=== PATIENT | female | born 1980 | race Caucasian/White ===

== ENCOUNTER 2021-07-13 16:40 | Outpatient (CLI) | payer OTHER, SELFPAY ==
--- NOTE | ~2021-07-13 | MM_ITS ---
EXAMINATION: MM screening letitia BI w joel HISTORY: Screening mammogram TECHNIQUE: Craniocaudal and mediolateral oblique 3-D tomosynthesis images were obtained and synthetic 2-D images were generated. CAD analysis was submitted and interpreted. COMPARISON: No prior mammogram is available for comparison at this institution. BREAST PARENCHYMAL COMPOSITION: There are scattered areas of fibroglandular density. FINDINGS: There is no evidence of suspicious mass, calcification, or architectural distortion to sugg est malignancy in either breast. There has been no suspicious interval change. IMPRESSION: 1. No mammographic evidence of malignancy. 2. Recommend routine screening mammography in one year. BI-RADS Category 1: Negative Reviewed, dictated and finalized at location A. PMENT PROCESSOR
== END 2021-07-13 16:41 | disposition home or self-care (01) ==
PROVIDERS: PCP Family Medicine Adolescent Medicine; Visit Provider Obstetrics & Gynecology
DX: Z12.31 Encounter for screening mammogram for malignant neoplasm of breast (principal)
CPT/HCPCS: 77063; 77067

== ENCOUNTER 2023-04-21 10:04 | Emergency (ER) | payer OTHER, SELFPAY ==
[2023-04-21 10:16] VITALS: BP 133/84; PULSE 87; RESP 16; TEMP 37; O2SAT 98
--- NOTE | 2023-04-21 10:46 | ED.URI ---
HPI - URI/Sore Throat General Chief Complaint: Upper Respiratory Infection Stated Complaint: Cough Time Seen by Provider: 04/21/23 10:36 Source: patient and RN notes reviewed Mode of arrival: ambulatory Limitations: no limitations History of Present Illness HPI Narrative: Patient presents today complaining of a 10 day history of sinus pressure, sneezing, cough, postnasal drip that has worsened over the past 3-4 days. She has tried DayQuil, NyQuil, Mucinex, ibuprofen with mild relief. No history of asthma or COPD. She is a nonsmoker. Related Data Allergies Allergy/AdvReac Type Severity Reaction Status Date / Time morphine Allergy Unknown Unknown Verified 04/21/23 10:33 Review of Systems Review of Systems: CONSTITUTIONAL: Denies body aches, fever, chills, or sweats. EYES: Denies visual changes, redness, or discharge. ENT: Denies rhinorrhea, sore throat, or otalgia.+ congestion, sinus pressure, postnasal drip, sneezing CARDIOVASCULAR: Denies chest pain, palpitations, or edema. RESPIRATORY: Denies dyspnea.+cough GASTROINTESTINAL: Denies abdominal pain, nausea, vomiting, or diarrhea. GENITOURINARY: Denies dysuria or hematuria. SKIN: Denies rash, itching, or wounds. MUSCULOSKELETAL: Denies back pain, joint pain, or myalgia. NEUROLOGIC: Denies headache, numbness, tingling, or weakness. PSYCH: Denies depression or anxiety. PMFSH Comments At time of signature, I have reviewed and agree with nursing past medical, surgical, social and family history unless otherwise noted. Please see nursing chart for further information. There is no relevant family history pertinent to the presenting complaint Exam Narrative: GENERAL: Well-appearing, well-nourished, and in no acute distress. HEAD: Normocephalic, atraumatic. EYES: EOMI. No redness or drainage. Conjunctivae normal. ENT: Mucous membranes pink and moist. Nares congested. No rhinorrhea. TMs normal bilaterally. Throat normal. Uvula midline. NECK: Normal AROM. Supple. No lymphadenopathy. CHEST: No respiratory distress. Clear to auscultation. Harsh tight cough. HEART: Regular rate and rhythm. No murmur appreciated. Normal peripheral pulses. EXTREMITIES: Normal range of motion. No edema. SKIN: Warm, dry, no rash. Capillary refill normal. Normal skin turgor. NEURO: No focal deficits. Alert and oriented x3. Gait steady. PSYCH: Normal affect. No signs of depression or anxiety. Course Course Level of Care: Express Care Visit Vital Signs Vital signs: Vital Signs Temperature 98.6 F 04/21/23 10:16 Pulse Rate 87 04/21/23 10:16 Respiratory Rate 16 04/21/23 10:16 Blood Pressure 133/84 04/21/23 10:16 Pulse Oximetry 98 04/21/23 10:16 Oxygen Delivery Room Air 04/21/23 10:16 Temperature 98.6 F 04/21/23 10:16 Pulse Rate 87 04/21/23 10:16 Respiratory Rate 16 04/21/23 10:16 Blood Pressure 133/84 04/21/23 10:16 Pulse Oximetry 98 04/21/23 10:16 Oxygen Delivery Room Air 04/21/23 10:16 Reviewed. Pt has been instructed to follow up with her PCP regarding her elevated blood pressure today. MDM - URI/Sore Throat MDM Narrative Medical decision making narrative: Patient's exam and symptoms consistent with sinusitis and bronchitis. Will treat with Augmentin and prednisone. Patient would also like a prescription for Tessalon Perles. Anticipatory guidance given. Differential Diagnosis Differential diagnosis: Likely upper respiratory infection, sinusitis, viral infection, bronchitis and other (Pneumonia) Critical Care Time Critical Care Time Critical Care Time: No Discharge Plan Discharge Clinical Impression: Bronchitis Sinusitis Qualifiers: Sinusitis location: frontal Chronicity: acute Recurrence: non-recurrent Qualified Code(s): J01.10 - Acute frontal sinusitis, unspecified Patient Disposition: Home, Self-Care Condition: Stable Instructions: Antibiotic Form, Sinusitis (ED), Acute Bronchitis (ED) Additional Ins
== END 2023-04-21 10:54 | disposition home or self-care (01) ==
PROVIDERS: Emergency Provider Nurse Practitioner; PCP Family Medicine Adolescent Medicine
DX: J40 Bronchitis, not specified as acute or chronic (principal); J01.10 Acute frontal sinusitis, unspecified
CPT/HCPCS: 99213; G0463

== ENCOUNTER → 2023-08-27 16:00 | Outpatient (CLI) | payer OTHER, SELFPAY ==
--- NOTE | ~2023-08-27 | US_ITS ---
EXAMINATION: US pelvic complete w TV DATE: 08/27/2023 16:52 INDICATION: Hypertrophy of uterus. TECHNIQUE: Multiple transabdominal and transvaginal sonographic images of the pelvis were obtained. COMPARISON: Ultrasound 11/22/2015 FINDINGS: TRANSABDOMINAL ULTRASOUND: The uterus measures 7.8 x 4.8 x 3.5 cm. There is no free fluid in the pelvis. TRANSVAGINAL ULTRASOUND: The endometrial complex measures 12 mm in thickness. There is a 1.4 cm intramural fibroid. The right ovary measures 2.1 x 1.9 x 2.1 cm. The left ovary is not visualized. IMPRESSION: 1. 1.4 cm intramural fibroid. Reviewed, dictated and finalized at location E. ING MACHINE OPERATOR [employer]
== END ==
PROVIDERS: PCP Obstetrics & Gynecology; Visit Provider Obstetrics & Gynecology
DX: D25.1 Intramural leiomyoma of uterus (principal); N85.2 Hypertrophy of uterus
CPT/HCPCS: 76830; 76856

== ENCOUNTER 2023-09-10 14:54 | Outpatient (CLI) | payer OTHER, SELFPAY ==
[2023-09-10 15:30] LABS: Basophils Absolute Auto 0.1 K/mm3 (0.0-0.1); Basophils Percent Auto 0.6 % (0.2-1.2); Eosinophils Absolute Auto 0.3 K/mm3 (0-0.3); Eosinophils Percent Auto 3.5 % (0-4.4); Hematocrit 40.5 % (37.0-47.0); Hemoglobin 12.9 g/dL (12.0-15.0); Immature Granulocyte Absolute 0.02 K/mm3 (0.00-0.031); Immature Granulocyte Percent A 0.2 % (0-0.5); Lymphocytes Absolute Auto 2.17 K/mm3 (0.9-3.2); Lymphocytes Percent Auto 25.2 % (18.3-44.2); Mean Corpuscular HGB Conc 31.9 g/dl (32-36); Mean Corpuscular Hemoglobin 25.3 pg (26-34); Mean Corpuscular Volume 79.6 fl (80-100); Mean Platelet Volume 9.7 fl (7.4-10.4); Monocytes Absolute Auto 0.6 K/mm3 (0.1-0.6); Monocytes Percent Auto 7.4 % (2.6-8.5); Neutrophils Absolute Auto 5.4 K/mm3 (1.3-6.7); Neutrophils Percent Auto 63.1 % (45.5-73.1); Platelet Count Result 253 k/mm3 (150-375); Red Blood Count 5.09 M/mm3 (4.2-5.4); Red Cell Distribution Width 13.7 % (11.5-14.5); White Blood Count 8.6 K/mm3 (4.5-10.0)
== END 2023-09-10 14:55 | disposition home or self-care (01) ==
LOC: ANHSURGERY 14:57
PROVIDERS: PCP Family Medicine Adolescent Medicine; Visit Provider Obstetrics & Gynecology
DX: Z01.818 Encounter for other preprocedural examination (principal); N92.0 Excessive and frequent menstruation with regular cycle
CPT/HCPCS: 36415; 85025; 86850; 86900; 86901

== ENCOUNTER 2023-09-13 01:18 | Day surgery (SDC) | payer OTHER, SELFPAY ==
[2023-09-05 11:23] VITALS: BMI 43.9
--- NOTE | 2023-09-05 11:28 | PC.NURSE ---
Report to the Outpatient Waiting Room, entrance under the green pavilion located off [facility], at time 11:30 on date 09/13/23. Planned Procedure Time: 1:30. Time changes happen often and if your time is changed the preop area will call you the afternoon before. - You and your visitor will be asked to self-screen and do not enter if you have any COVID symptoms. - A mask is optional within the hospital at this time. Patients may have clear liquids (water, carbonated beverages, clear teas, apple juice) until 3 hours prior to surgery with a maximum of 20 ounces. - No food from midnight until time of surgery Take the following medications with a SIP of water the morning of surgery: N/A DO NOT STOP ANY OF YOUR OTHER PRESCRIPTION MEDICATIONS PRIOR TO SURGERY ?EXCEPT THE FOLLOWING Medications to discontinue per physician: N/A Date to take last dose: N/A Please no make-up, nail mongolian, hairspray, perfume, deodorant, or body powder the day of surgery. No jewelry (including any body piercings) or valuables the day of surgery, leave them at home. Please take a shower or bath the night before, or the morning of, surgery with an antibacterial soap. Wear comfortable, loose fitting clothing. - Jewelry must be removed prior to entering the operating room. Rings and piercings that are not removed may be cut off. - The hospital will not accept responsibility for valuables. - Please leave all valuables, including medications, at home the day of surgery. If you are going home after surgery, a licensed tram driver must drive you home. - NO public transportation without another adult if you receive anesthesia. - We recommend that an adult stay with you for 24 hours following discharge. - We also recommend that you do not drive, make important decision, drink alcoholic beverages, or take any drugs that were not prescribed by your health care provider for at least 24 hours after your discharge time. Follow any additional instructions given to you from your surgeon. If you or anyone in your household have experienced Covid symptoms in the past week, please notify your surgeon or the nurse liaison at the phone number below for possible testing. Telephone instructions given to PT Josefina DURAN and asked if any additional questions and then verbalized understanding. Patient advised to call surgeon office or pre surgery nurse liaison [phone] if any additional questions.
--- NOTE | 2023-09-10 07:36 | P.HP_ITS ---
H&P: HPI History of Present Illness Date/Time: 09/10/23 07:36 Chief Complaint: Vaginal bleeding/pelvic pain/uterine fibroids Narrative: 43-year-old female who is admitted for hysterectomy and salpingectomy secondary to enlarged fibroid uterus. She has no interest in children she has had pelvic pain bleeding and opts for hysterectomy and bilateral salpingectomy for definitive therapy. Risks and benefits were reviewed in great detail. She had all questions answered. She received the [employer] handout entitled hysterectomy as well as the de Lorna handout. She had all questions answered asked to proceed [facility] Social History Social History Smoking status: Never smoker Alcohol intake: current Alcohol use details: RARE Substance use: current Substance use type: marijuana Living arrangements: with family Spiritual care concerns: No Meds Home Medications and Allergies Home Medications Medication Instructions Recorded Confirmed Type No Home Medications 09/05/23 09/05/23 History Allergies Allergy/AdvReac Type Severity Reaction Status Date / Time morphine Allergy Unknown Vomiting Verified 09/05/23 11:23 Exam Const: General: cooperative, healthy appearing and comfortable Nutritional Appearance: obese Orientation/consciousness: oriented to person, oriented to place and oriented to time Resp: Effort & Inspection: normal respiratory effort Cardio: Rate: regular rate Rhythm: regular rhythm Heart sounds: S1 normal heart sound present and S2 normal heart sound present GI: Inspection: normal to inspection and obesity : External Female Exam: normal external appearance Speculum Exam - Vagina: normal appearance of the vagina Speculum Exam - Cervix: normal appearance of the cervix Bimanual exam- vagina & uterus: enlarged and Uterine tenderness Bimanual Exam- Adnexa, other: normal adnexae Assessment and Plan Assessment and plan (1) Pelvic pain: Code(s): R10.2 - Pelvic and perineal pain Status: Acute (2) Enlarged uterus: Code(s): N85.2 - Hypertrophy of uterus Status: Acute (3) Excessive vaginal bleeding: Code(s): N93.9 - Abnormal uterine and vaginal bleeding, unspecified Status: Acute Plan Robotic total vaginal hysterectomy bilateral salpingectomy
[2023-09-13] VITALS (11 sets, daily range): BP systolic 118–142; BP diastolic 57–84; PULSE 70–97; RESP 12–20; TEMP 36.6–36.8; O2SAT 93–100; BMI 44.4
--- NOTE | 2023-09-13 06:34 | WPDHPUPDATE1 ---
History and Physical Update Update Date/Time: 09/13/23 06:34 History and Physical has been reviewed, including an updated exam of the patient. There are NO changes in the patient's condition. Risks, benefits, and alternatives have been discussed and questions answered. Patient agrees to proceed with procedure.
[2023-09-13] MEDS: ACETAMINOPHEN 500 MG TABLET 1000 MG PO (10:25)
[2023-09-13] MEDS: KETOROLAC 15 MG/ML VIAL (*BKC) IV PUSH (10:25)
--- NOTE | 2023-09-13 10:51 | P.PNAN_ITS ---
Anes - Initial Pre Proc Eval Procedure: Operation Date: 09/13/23 13:30 Proposed Procedures p Robotic Assisted Total Vaginal Hysterectomy with Bilateral Salpingectomy - Endy Lee MD Date/Time: 09/13/23 10:51 Surgeon: Endy Lee MD Pre Op Diagnosis: Heavy Bleed, Pain, Fibroids, Enlarged Uterus Patient Data Age: 43 Gender: F Height: 1.7 m Weight: 128.5 kg Last Vital Signs Pulse 91 09/13/23 10:13 Resp 16 09/13/23 10:13 BP 142/70 H 09/13/23 10:13 Pulse Ox 100 09/13/23 10:13 O2 Del Method Room Air 09/13/23 10:13 Allergies Allergy/AdvReac Type Severity Reaction Status Date / Time morphine Allergy Unknown Vomiting Verified 09/13/23 10:07 Home Medications Medication Instructions Recorded Confirmed Type hydrocodone 5 mg-acetaminophen 325 1 tablet PO Q4H PRN pain #20 tabs 09/13/23 Rx mg tablet Patient hx anesthesia problems: none Family hx anesthesia problems: none Results Review: All pre-operative results and documents have been reviewed as part of the pre- operative evaluation. [facility] Social History Social History Smoking status: Never smoker Alcohol intake: current Alcohol use details: RARE Substance use: current Substance use type: marijuana Living arrangements: with family Spiritual care concerns: No Anes - Eval Final PreProcedure Day of Procedure 09/13/23 10:51 Patient weight: morbidly obese Heart: regular rate and rhythm Lungs: clear to auscultation Airway: Mallampati scale class III Neurological: alert and oriented Last oral intake: >/= 8 hours ASA classification: III Emergent: no Anesthetic plan: proceed Anesthesia type and monitoring: general ETT and standard monitoring Results Review: All pre-operative results and documents have been reviewed as part of the pre- operative evaluation. Informed Consent: The patient's anesthetic plan and its attendant risks and benefits were discussed with the patient/family/POA. Questions were solicited and answers provided to the satisfaction of the patient/family/POA.
[2023-09-13] MEDS: LACTATED RINGERS 1,000 ML 30 ML IV CONT ×2 (10:54→13:10)
[2023-09-13] MEDS: ceFAZolin 3 GM/D5W 100 ML 100 ML IVPB (11:50)
--- NOTE | 2023-09-13 13:04 | W.PM.PROC2 ---
Procedure Note - Detailed Date of Procedure 09/13/23 Pre-op Diagnosis Heavy Bleed, Pain, Fibroids, Enlarged Uterus Post-op Diagnosis Same Procedure Performed Robotic total vaginal hysterectomy bilateral salpingectomy and extensive lysis of adhesions Surgeon Endy Lee MD Anesthesia General Indications this is 43-year-old female with symptomatic uterine fibroids Findings markedly enlarged uterus. Normal-appearing tubes bilaterally the right ovary was somewhat adherent to the ovarian fossa. Adhesions were seen in cul-de-sac from the colon to the cul-de-sac. Description of Procedure The patient was prepped draped in normal sterile fashion placed in the dorsal lithotomy position. Under excellent general trach anesthesia weighted speculum placed in posterior fornix vagina. Anterior lip of the cervix grasped with a single-tooth tenaculum. Uterus sounded to 10cm. Serial dilatation with fragmented dilators performed. This was followed by passage of the 10. NEGRITO and the 3. Cold cup. Next 16 Setswana catheter was placed in the bladder and drained of clear urine. The weighted speculum was removed and the gloves were changed. A supraumbilical incision made the Veress needle passed in the abdomen. Abdomen filled with CO2 gas [id number]. The 8mm trocar advanced in the abdomen. Downside visualized no injury seen. Patient placed in Trendelenburg and left and quadrant incisions. 8Mm trocars advanced under direct visualization assuring injury. Right upper quadrant incision made. Trocar was advanced under direct visualization assuring no injury. The robot was docked. Attention was turned to the financial services counselor. Multiple adhesions were seen with the colon adherent to the posterior surface of the uterus. This was sharply dissected it and brought away from the involved. The left round ligament was grasped, burned, cut. Anterior bladder was formed by sharply dissecting perineum reflecting the bladder caudally away from the cervix uterus the opposite round ligament was clamped, burned cut. Next the left fallopian tube was teased away from the ovary and left attached to its uterine origin this was repeated with the contralateral right tube. Next the utero-ovarian ligament on the left was skeletonized clamping burning cutting and bringing this to the level of the previously cut ligament to conserve the right left ovary. In similar fashion, conserving the right ovary utero-ovarian ligament was clamped, burned, cut brought to the level of previously cut ligament. Next the left cardinal and broad ligaments were serially skeletonized clamping burning cutting and bringing this down lateral edge of the uterus cervix until the uterine vessels could be seen on the left. These were individually clamped, burned, cut. In similar fashion the cardinal put and broad ligaments were skeletonized clamping burning cutting and until the uterine vessels could be visualized. The uterine vessels were then individually clamped, burned, cut. A colpotomy incision was made cervix uterus and tubes removed through the vagina. Irrigation undertaken until clear. The vagina was then closed with continuous running 0V lock from lateral edge to lateral edge and back to the midline. Irrigation subcutaneous layer. And [place] term placed over the raw surface areas. Hemostasis was assured. The robot was undocked. The gas removed from the abdomen. The trocars removed and the incisions closed with 4 Monocryl glue. Patient was awakened and went to recovery in satisfactory condition. All sponge, needle, instrument counts were correct. There were no immediate complications noted Estimated Blood Loss 25 Drains No Packing No Pathology Yes Complications No immediate complications Condition Stable Disposition PACU
--- NOTE | 2023-09-13 13:09 | P.DS_ITS ---
DS: Admitting Diagnosis Discharge Date 09/14/23 Admitting Diagnosis excessive bleeding /enlarged uterus/ pelvic pain DS: Discharge Diagnosis Discharge Diagnosis (1) Excessive vaginal bleeding: Code(s): N93.9 - Abnormal uterine and vaginal bleeding, unspecified Status: Acute (2) Enlarged uterus: Code(s): N85.2 - Hypertrophy of uterus Status: Acute (3) Pelvic pain: Code(s): R10.2 - Pelvic and perineal pain Status: Acute DS: Summary Hospital Course Reason for hospitalization: patient was admitted for robotic hysterectomy and bilateral salpingectomy. Hospital Course: Patient underwent robotic hysterectomy and bilateral salpingectomy on 09/13/2023. She also had extensive lysis of adhesions. Hospital course unremarkable. She remained afebrile. She was up, voiding without difficulty, ambulating eating regular diet and generally without complaints. Time Spent with Patient Time attestation: Total time spent providing and/or coordinating discharge services: Exam Const: General: cooperative, healthy appearing and comfortable Manolo entation/consciousness: oriented to person, oriented to place and oriented to time HENMT: Head: normal to inspection Resp: Effort & Inspection: normal respiratory effort Cardio: Rate: regular rate Rhythm: regular rhythm Heart sounds: S1 normal heart sound present and S2 normal heart sound present GI: Inspection: normal to inspection and incision ( Wound clean dry and intact) DS: Data Data Completed and Pending Pending studies at discharge: Pending at discharge 09/13/23 12:50 Surgical [PTH] Routine Discharge Plan Discharge Patient Disposition: Home, Self-Care Discharge Instructions: Nothing in the vagina for 6 weeks. Call or return if temperature above 100.4? F, increased abdominal pain, increased vaginal bleeding or any new problems. Patient Instructions: Hysterectomy (DC) Stand Alone Forms: General Discharge Instructions Follow-up/Referrals: Endy South MD [Physician] - 2 Weeks Discharge Medications: New hydrocodone-acetaminophen 5-325 mg tablet 1 tablet PO Q4H PRN (Reason: pain) Qty: 20 0RF
[2023-09-13] MEDS: HALOPERIDOL LACTATE 5 MG/ML VIAL 2.5 MG IV PUSH (13:23)
[2023-09-13] MEDS: diphenhydrAMINE HCl INJ 50 MG/ML VIAL 12.5 MG IV PUSH (13:23)
[2023-09-13] MEDS: fentaNYL CITRATE INJ (*CRX) 100 MCG/2 ML VIAL 25 MCG IV PUSH ×4 (13:28→14:22)
--- NOTE | 2023-09-13 15:00 | PC.NURSE ---
This patient, Betty Churchill, was received from PACU via bed on 09/13/23 at 1500. Patient/family oriented to unit policies and routines
[2023-09-13] MEDS: DOCUSATE SODIUM 100 MG CAPSULE PO (16:24)
[2023-09-13] MEDS: DEXTROSE 5%/LACTATED RINGERS 1,000 ML 125 ML IV CONT (16:24)
[2023-09-13] MEDS: SIMETHICONE 80 MG TAB.CHEW PO (16:25)
[2023-09-13] MEDS: HYDROcodone/acetaminophen (*CRX) 5-325 MG TABLET 1 TAB PO ×3 (17:52→23:59)
[2023-09-13] MEDS: IBUPROFEN 600 MG TABLET PO ×2 (17:54→23:59)
[2023-09-14] VITALS: BP 139/84; PULSE 92; RESP 18; TEMP 36.4; O2SAT 97
[2023-09-14 04:00] VITALS: BP 131/80; PULSE 60; RESP 18; TEMP 36.6; O2SAT 98
[2023-09-14 04:48] LABS: Basophils Percent Auto 0.2 % (0.2-1.2); Hematocrit 43.9 % (37.0-47.0); Hemoglobin 12.9 g/dL (12.0-15.0); Immature Granulocyte Absolute 0.08 K/mm3 (0.00-0.031); Immature Granulocyte Percent A 0.5 % (0-0.5); Lymphocytes Absolute Auto 1.18 K/mm3 (0.9-3.2); Lymphocytes Percent Auto 7.7 % (18.3-44.2); Mean Corpuscular HGB Conc 29.4 g/dl (32-36); Mean Corpuscular Hemoglobin 24.9 pg (26-34); Mean Corpuscular Volume 84.7 fl (80-100); Mean Platelet Volume 10.1 fl (7.4-10.4); Monocytes Absolute Auto 0.6 K/mm3 (0.1-0.6); Monocytes Percent Auto 3.7 % (2.6-8.5); Neutrophils Absolute Auto 13.4 K/mm3 (1.3-6.7); Neutrophils Percent Auto 87.9 % (45.5-73.1); Platelet Count Result 261 k/mm3 (150-375); Red Blood Count 5.18 M/mm3 (4.2-5.4); Red Cell Distribution Width 13.8 % (11.5-14.5); White Blood Count 15.3 K/mm3 (4.5-10.0)
[2023-09-14] MEDS: HYDROcodone/acetaminophen (*CRX) 5-325 MG TABLET 1 TAB PO ×2 (04:58→08:32)
[2023-09-14 08:00] VITALS: BP 119/71; PULSE 76; RESP 16; TEMP 36.6; O2SAT 99
[2023-09-14] MEDS: IBUPROFEN 600 MG TABLET PO (08:30)
[2023-09-14] MEDS: DOCUSATE SODIUM 100 MG CAPSULE PO (08:33)
[2023-09-14] MEDS: SIMETHICONE 80 MG TAB.CHEW PO (08:33)
[2023-09-14] MEDS: ENOXAPARIN 40 MG/0.4 ML SYRINGE SUB-Q (09:17)
--- NOTE | 2023-09-14 09:20 | PM.GYNPNOP ---
DIAGNOSTIC MEDICAL SONOGRAPHER - A/P Assessment and plan (1) Excessive vaginal bleeding: Code(s): N93.9 - Abnormal uterine and vaginal bleeding, unspecified Status: Acute Assessment and Plan: A: POD#1, doing well. P: Home to f/u 2 weeks. (2) Enlarged uterus: Code(s): N85.2 - Hypertrophy of uterus Status: Acute (3) Pelvic pain: Code(s): R10.2 - Pelvic and perineal pain Status: Acute Postoperative Procedures: Procedures Operation Date: 09/13/23 13:30 Actual Procedure Side Surgeon p Robotic Assisted Total Vaginal Hysterectomy with Bilateral Salpingectomy Bilateral Endy Lee MD Time Spent With Patient Time with patient: less than 15 minutes DIAGNOSTIC MEDICAL SONOGRAPHER- PN:Subj Post-Op Subjective Date/time seen: 09/14/23 09:20 Interval history: Pain OK. Tolerating diet. Voiding. Would like to go home. Exam Narrative: AVSS I/O OK ABD soft, nontender. Incisions c/d/i. EXT nontender DIAGNOSTIC MEDICAL SONOGRAPHER - PN: Obj Data Vital Signs Vital Signs: Vital Signs - 24 hr 09/13/23 10:13 09/13/23 13:10 09/13/23 13:25 Temperature 36.8 C Pulse Rate 91 83 97 Respiratory Rate 16 12 20 Blood Pressure 142/70 H 118/68 128/66 Pulse Oximetry 100 97 99 Oxygen Delivery Room Air Simple Face Mask Simple Face Mask Oxygen Flow Rate 6 6 09/13/23 13:40 09/13/23 13:55 09/13/23 14:10 Temperature Pulse Rate 88 88 82 Respiratory Rate 20 18 18 Blood Pressure 118/63 121/74 122/64 Pulse Oximetry 100 100 95 Oxygen Delivery Simple Face Mask Room Air Room Air Oxygen Flow Rate 6 09/13/23 14:53 09/13/23 14:25 09/13/23 14:40 Temperature Pulse Rate 82 70 81 Respiratory Rate 14 16 14 Blood Pressure 121/60 118/57 L 118/73 Pulse Oximetry 96 93 95 Oxygen Delivery Room Air Room Air Room Air Oxygen Flow Rate 09/13/23 15:00 09/13/23 20:00 09/14/23 00:00 Temperature 36.6 C 36.7 C 36.4 C L Pulse Rate 78 92 92 Respiratory Rate 16 18 18 Blood Pressure 122/64 139/84 139/84 Pulse Oximetry 98 97 97 Oxygen Delivery Oxygen Flow Rate 09/14/23 04:00 Temperature 36.6 C Pulse Rate 60 Respiratory Rate 18 Blood Pressure 131/80 Pulse Oximetry 98 Oxygen Delivery Oxygen Flow Rate Intake/Output Intake/Output: Intake & Output 09/11/23 09/12/23 09/13/23 09/14/23 23:59 23:59 23:59 23:59 Intake Total 1000 Output Total 1090 1000 Balance -90 -1000 Meds/Results Medications: Active Medications Generic Name Dose Route Start Last Admin Trade Name Freq PRN Reason Stop Dose Admin Hydrocodone Bitart/Acetaminophen 1 tab 09/13/23 14:54 09/14/23 08:32 Hydrocodone/Acetaminophen (*Crx) 5-325 Mg Tablet PO 1 tab Q3H PRN Administration Pain Rated 5 or Less Hydrocodone Bitart/Acetaminophen 1 tab 09/13/23 14:54 Hydrocodone/Acetaminophen (*Crx) 10-325 Mg Tablet PO Q3H PRN Pain Rated 6 or Greater Docusate Sodium 100 mg 09/13/23 17:00 09/14/23 08:33 Docusate Sodium 100 Mg Capsule PO 100 mg BID VICTOR M Administration Enoxaparin Sodium 40 mg 09/14/23 09:00 09/14/23 09:17 Enoxaparin 40 Mg/0.4 Ml Syringe SUB-Q 40 mg DAILY VICTOR M Administration Ibuprofen 600 mg 09/13/23 14:54 09/14/23 08:30 Ibuprofen 600 Mg Tablet PO 600 mg Q6H PRN Administration Cramping Ketorolac Tromethamine 30 mg 09/13/23 14:54 Ketorolac 30 Mg/Ml Vial (*Bkc) IV PUSH 09/18/23 14:53 Q6H PRN Pain Rated 4-6 Naloxone HCl 0.1 mg 09/13/23 14:54 Naloxone Hcl 0.4 Mg/Ml Vial IV PUSH Q2M PRN Respiratory rate less than 10 Ondansetron HCl 4 mg 09/13/23 14:54 Ondansetron Inj 4 Mg/2 Ml Vial IV PUSH Q6H PRN Nausea And Vomiting Simethicone 80 mg 09/13/23 17:00 09/14/23 08:33 Simethicone 80 Mg Tab.Chew PO 80 mg TIDWM VICTOR M Administration Labs 09/14/23 04:35 Labs: Laboratory Results - last 24 hr 09/14/23 04:35 WBC 15.3 H RBC 5.18 Hgb 12.9 Hct 43.9 MCV 84.7 D MCH 24.9 L MCHC
--- NOTE | 2023-09-14 09:47 | WPDANESPN ---
Anes - Prog Note Post-Op Date/Time: 09/14/23 09:47 Cardiovascular status: normal Respiratory status: normal Airway patency: baseline Mental status: baseline Post-Op hydration status: normal Vital Signs: Last Vital Signs Temp 36.6 C 09/14/23 04:00 Pulse 60 09/14/23 04:00 Resp 18 09/14/23 04:00 BP 131/80 09/14/23 04:00 Pulse Ox 98 09/14/23 04:00 O2 Del Method Room Air 09/13/23 14:53 O2 Flow Rate 6 09/13/23 13:40 Pain Score (VAS): 0 I/O: Intake & Output 09/13/23 09/14/23 09/14/23 23:59 07:59 15:59 Output Total 850 1000 Balance -850 -1000 Laboratory Tests 09/14/23 04:35 09/14/23 04:35 WBC 15.3 H RBC 5.18 Hgb 12.9 Hct 43.9 MCV 84.7 D MCH 24.9 L MCHC 29.4 L RDW 13.8 Plt Count 261 MPV 10.1 Immature Gran % (Auto) 0.5 Neut % (Auto) 87.9 H Lymph % (Auto) 7.7 L [place] % (Auto) 3.7 Eos % (Auto) 0.0 Baso % (Auto) 0.2 Lymph # (Auto) 1.18 [place] # (Auto) 0.6 Eos # (Auto) 0.0 Baso # (Auto) 0.0 Abs Immat Gran (auto) 0.08 H Absolute Neuts (auto) 13.4 H Absolute Nucleated RBC 0.0 Nucleated RBC % 0.0 Post-procedural complaints: none Patient Feedback: Patient satisfied with anesthetic care.
== END 2023-09-14 10:20 | disposition home or self-care (01) ==
LOC: ANHSURGERY 09:20 → ANHOB2 15:00
PROVIDERS: PCP Family Medicine Adolescent Medicine; Visit Provider Obstetrics & Gynecology
PROC: (CPT 58552; principal; 2023-09-13 13:30)
DX: N73.6 Female pelvic peritoneal adhesions (postinfective) (principal); N88.8 Other specified noninflammatory disorders of cervix uteri; N80.00 Endometriosis of the uterus, unspecified; D25.1 Intramural leiomyoma of uterus; N93.9 Abnormal uterine and vaginal bleeding, unspecified; R10.2 Pelvic and perineal pain; E66.01 Morbid (severe) obesity due to excess calories; Z68.41 Body mass index [BMI] 40.0-44.9, adult
CPT/HCPCS: 58552; S2900; 36415; 85025; 86850; 86900; 86901; 88307; 99199; A9270; J0690; J1170; J1200; J1630; J1650; J1885; J2250; J3010; J7030; J7120; J7121

== ENCOUNTER 2023-11-11 11:22 | Emergency (ER) | payer OTHER, SELFPAY ==
--- NOTE | 2023-11-11 11:24 | ED.FEMALEGU ---
HPI - Female Genitourinary General Chief complaint: Urogenital-Female Stated complaint: urinary issue Time Seen by Provider: 11/11/23 11:23 Source: patient Mode of arrival: ambulatory Limitations: no limitations History of Present Illness HPI Narrative: Betty is a 43-year-old female patient presenting to the clinic today with complaints of possible UTI. She reports since Saturday she has had burning with urination and this morning she noted some blood in her urine. She denies any fever, chills, body aches, back pain, or abdominal pain. Had recent partial hysterectomy back in September. Denies any concern for any STIs. Denies any vaginal discharge. Related Data Allergies Allergy/AdvReac Type Severity Reaction Status Date / Time morphine Allergy Unknown Vomiting Verified 09/13/23 10:07 Review of Systems Review of Systems: Pertinent positives per HPI. Patient denies any fever, chills, rash, headache, visual changes, dizziness, cough, runny nose, sore throat, shortness of breath, chest pain, palpitations, nausea, vomiting, diarrhea, constipation, abdominal pain. [facility] Surgical History Surgical History History of vaginal hysterectomy (09/2023) Ovaries not removed Social History Social History Smoking status: Never smoker Alcohol intake: current Alcohol use details: RARE Substance use: current Substance use type: marijuana Living arrangements: with family Spiritual care concerns: No Comments At the time of my signature, I reviewed and agree with the nursing past medical, surgical, social, and family history. There is no relevant family history pertinent to the patient complaint. Exam Narrative: General: Well-developed, morbidly obese, in no apparent distress. Head: Normocephalic, atraumatic. Cardio: Regular rate and rhythm, s1 and s2 normal, no murmur appreciated. Resp: Clear to auscultation bilaterally, no rhonchi, rales, wheezing or rubs. Abdomen: Soft, pliable, bowel sounds present in all quadrants, mild tender to palpation over the suprapubic area, no organomegly, no CVAT tenderness. Course Course Emergency Course: Portions of this record may have been created with voice recognition software. Level of Care: Express Care Visit Vital Signs Vital signs: Vital signs reviewed MDM - Female Genitourinary MDM Narrative Medical decision making narrative: At the time of visit patient is resting comfortably on the exam table. Patient appears to be nontoxic. Labs: UA dip skewed due to blood in the urine. Plan: I suspect patient has UTI with gross hematuria. Prescription for Augmentin was sent to the pharmacy. Supportive measures were discussed with the patient and they voiced understanding discharge instructions and agrees to treatment plan. Return precautions reviewed Differential Diagnosis Differential diagnosis: Likely urinary tract infection, cystitis and other (OAB) Discharge Plan Discharge Clinical Impression: Urinary tract infection Patient Disposition: Home, Self-Care Condition: Stable Instructions: Antibiotic Form, Urinary Tract Infection in Women (ED) Additional Instructions: UA dip likely skewed due to the blood in your urine. We will send urine for culture. Take Augmentin as prescribed Increase fluids and stay well hydrated Wipe front to back. May use wet wipes. Avoid tub baths If sexually active- pee before and after intercourse. Wear cotton panties Avoid tight clothing up against the genitals Follow up with your PCP in 1 week if symptoms persist. Prescriptions: New amoxicillin-pot clavulanate 875-125 mg tablet 1 tablet PO Q12H 7 Days Qty: 14 0RF Follow-up/Referrals: Santos Garcia MD [Primary Care Provider] - Time of Disposition: 11:51 Quality NIHSS Nursing Documentation ED NIHSS nursing documen
[2023-11-11 11:32] VITALS: BP 113/77; PULSE 94; RESP 18; TEMP 37.2; O2SAT 97
== END 2023-11-11 11:55 | disposition home or self-care (01) ==
PROVIDERS: Emergency Provider Nurse Practitioner Family; PCP Family Medicine Adolescent Medicine
DX: N39.0 Urinary tract infection, site not specified (principal); B96.20 Unspecified Escherichia coli [E. coli] as the cause of diseases classified elsewhere; B95.2 Enterococcus as the cause of diseases classified elsewhere; F12.90 Cannabis use, unspecified, uncomplicated
CPT/HCPCS: 81003; 87077; 87086; 87088; 87147; 87181; 87186; 99213; G0463

== ENCOUNTER 2024-06-14 14:53 | Emergency (ER) | payer OTHER, SELFPAY ==
--- NOTE | 2024-06-14 14:56 | ED.SKABFB ---
HPI - Skin/Abscess/Foreign Bdy General Chief complaint: Skin/Abscess/Foreign Body Stated complaint: rash Time Seen by Provider: 06/14/24 15:12 Source: patient, RN notes reviewed and old records reviewed Mode of arrival: ambulatory Limitations: no limitations History of Present Illness HPI narrative: 43-year-old female presents to the [facility] with a rash that started on the left upper chest now has moved to the right posterior neck. Area is dry, mildly raised. Area is red without increased warmth. Related Data Allergies Allergy/AdvReac Type Severity Reaction Status Date / Time morphine AdvReac Intermediate Vomiting Verified 06/14/24 14:55 Review of Systems Review of Systems: All systems reviewed & are unremarkable except as noted in HPI and below Constitutional: Constitutional: Reports no additional constitutional complaints ENT: Reports system reviewed and no additional complaints, except as documented Cardiovascular: Cardiovascular: Reports no additional cardiovascular complaints, Denies chest pain and Denies dyspnea Respiratory: Respiratory: Reports no additional respiratory complaints, Denies chest congestion, Denies cough and Denies dyspnea Gastrointestinal: Gastrointestinal: Reports no additional gastrointestinal complaints, Denies abdominal pain, Denies nausea and Denies vomiting Musculoskeletal: Musculoskeletal: Reports no additional musculoskeletal complaints Integumentary/Breasts: Skin/Breast: Reports as per HPI PMFSH Surgical History Surgical History History of vaginal hysterectomy (09/2023) Ovaries not removed Social History Social History Smoking status: Never smoker Alcohol intake: current Alcohol use details: RARE Substance use: current Substance use type: marijuana Living arrangements: with family Spiritual care concerns: No Comments At the time of my signature, I reviewed and agree with the nursing past medical, surgical, social, and family history. There is no relevant family history pertinent to the patient complaint. Exam Const: General: cooperative, healthy appearing, comfortable, no acute distress, well developed, alert and well nourished Nutritional Appearance: well nourished Orientation/consciousness: patient oriented x3 Limitations: no limitations HENMT: Head: normal to inspection Ears: hearing grossly normal bilaterally and external ears normal Face/Nose/Sinus: Normal external nose present, normal facial exam and face symmetric Face and sinus: normal facial exam and face symmetric Mouth: Yes Normal oral and palatal mucosa present, Yes lip normal and Yes tongue normal Eyes: General: appearance normal, both eyes and all related structures Alignment and Position: alignment normal Periorbital: periorbital findings normal Neck: Neck: normal visual inspection, full ROM, no lymphadenopathy and no meningeal signs Chest: Chest palpation & inspection: normal inspection of the chest Resp: Effort & Inspection: normal respiratory effort and able to speak in complete sentences Cardio: Rate: regular rate Skin: General skin exam: normal color and no rashes or lesions noted Lesions: no lesions Wounds: no wounds Other: Multiple small rashes noted to the chest area, larger patch to the right posterior neck. No signs of cellulitic changes, most likely a dermatitis. Neuro: General: patient oriented x3, gait normal, tone normal, moves all extremities and no meningeal signs Cognition (Neuro): normal cognition Speech: normal speech Gait exam (Neuro): Normal gait present Extrem: General: normal to inspection, full ROM, capillary refill normal and normal gait Psych: Appearance: grossly normal and well kempt Mental Status: mental status grossly normal Speech and movement: Normal speech and movement present and Clear speech present Affect: normal affect Attitude: cooperative Course Course Level of Care: Express Care Visit Vital Signs Vital signs: Vital Signs Temperature 98.3 F 06/14/24 15:00 Pulse Rate 81 06/14/24 15:00 Respiratory Rate 14 06/14/24 15:00 Blood Pressure 113/61 06/14/24 15:00 Pulse Oximetry 99 06/14/24 15:00 Temperature 98.3 F 06/14/24 15:00 Pulse Rate 81 06/14/24 15:00 Respiratory Rate 14 06/14/24 15:00 Blood Pressure 113/61 06/14/24 15:00 Pulse Oximetry 99 06/14/24 15:00 Reviewed MDM - Skin/Abscess/Foreign Bdy MDM Narrative Medical decision making narrative: Patient sitting comfortably in exam room. Nontoxic, vitals stable. Patient presents with a rash times several days. Exam most consistent with contact dermatitis Patient appropriate for outpatient treatment follow-up Discharge instructions reviewed with patient, as well as provided in writing per nursing staff. The instructions also include specific and strict return/GO TO THE ER as well as f/u information. All questions have been answered, and the patient deny any further questions with discharge and discharge plan. Some parts of this dictation were generated by voice recognition software and may contain typographical and/or grammatical inaccuracies. Differential Diagnosis Differential diagnosis: Likely abscess of skin or subcutaneous tissue, urticaria, cellulitis, eczema and contact dermatitis Critical Care Time Critical Care Time Critical Care Time: No Discharge Plan Discharge Clinical Impression: Contact dermatitis Patient Disposition: Home, Self-Care Condition: Stable Instructions: Antibiotic Form, Contact Dermatitis (ED) Additional Instructions: The most important part of your care is follow up with Primary care provider. Take Benadryl 25-50 mg every 8 hours for itching Take Zyrtec every day Take Pepcid 20mg daily for 7 days Take the steroids starting today and next dose will be in the morning Avoid hot showers, Take cool showers. Hot showers will make rashes worse Apply cool compresses every 2-3 hours for 15 minutes Go to the ER for new or worsening symptoms such as shortness of breath. Patient Language: Thai Prescriptions: New prednisone 20 mg tablet See Rx Instructions .Route .COMPLEX Qty: 9 0RF Rx Instructions: Take 40 mg daily for 3 days, 20 mg daily for 3 days triamcinolone acetonide 0.1 % cream 1 applic topical BID Qty: 30 0RF Follow-up/Referrals: Santos Garcia MD [Primary Care Provider] - 2 Weeks ([facility] care follow up) Stand Alone Forms: Work/School Release IP Time of Disposition: 15:24
[2024-06-14 15:00] VITALS: BP 113/61; PULSE 81; RESP 14; TEMP 36.8; O2SAT 99
== END 2024-06-14 15:29 | disposition home or self-care (01) ==
PROVIDERS: Emergency Provider Nurse Practitioner; PCP Family Medicine Adolescent Medicine
DX: L25.9 Unspecified contact dermatitis, unspecified cause (principal); F12.90 Cannabis use, unspecified, uncomplicated
CPT/HCPCS: 99213; G0463

== ENCOUNTER 2025-02-27 19:11 | Emergency (ER) | payer OTHER, SELFPAY ==
[2025-02-27 19:19] VITALS: BP 116/90; PULSE 79; RESP 18; TEMP 36.3; O2SAT 97
[2025-02-27 19:32] LABS: EDUAAPPEAR Cloudy; EDUABILI Negative (Negative); EDUABLOOD 3+ (Negative); EDUACOLOR1 Dark; EDUAGLUCOSE Negative (Negative); EDUAKETONE Negative (Negative); EDUALEUKO 1+ (Negative); EDUANITRATE Negative (Negative); EDUAPH 6.0; EDUAPROTEIN 2+ (Negative); EDUASPGRAVITY 1.030; EDUAUROBILI 0.2
--- NOTE | 2025-02-27 19:40 | ED.FEMALEGU ---
HPI - Female Genitourinary General Chief complaint: Urogenital-Female Stated complaint: urinary irritation Time Seen by Provider: 02/27/25 19:25 Source: patient and RN notes reviewed Mode of arrival: ambulatory Limitations: no limitations History of Present Illness HPI Narrative: 44-year-old female presents Express Care complaining of urinary symptoms since today. Patient reports having dysuria, increased frequency, hesitancy, and blood in her urine. Patient denies any fevers, abdominal pain, body aches, chills, nausea, vomiting, diarrhea, vaginal discharge or vaginal bleeding, or pelvic pain. pAtient has not taken anything [id number] for symptoms. Patient denies any significant past medical history. Patient denies any concerns for STIs. Related Data Home Medications ?Medication ?Instructions ?Recorded ?Confirmed ?Last Taken ?Type No Home Medications 02/27/25 02/27/25 Unknown History Allergies Allergy/AdvReac Type Severity Reaction Status Date / Time morphine AdvReac Intermediate Vomiting Verified 02/27/25 19:13 Review of Systems Review of Systems: CONSTITUTIONAL: Denies fever, chills, body aches, or sweats. EYES: Denies visual changes, redness, or discharge. ENT: Denies rhinorrhea, congestion, sore throat, or otalgia. CARDIOVASCULAR: Denies chest pain, palpitations, or edema. RESPIRATORY: Denies cough or dyspnea. GASTROINTESTINAL: Denies abdominal pain, nausea, vomiting, or diarrhea. GENITOURINARY: Positive for dysuria, increased frequency, hesitancy, hematuria. SKIN: Denies rash or itching. MUSCULOSKELETAL: Denies back pain, joint pain, or myalgia. NEUROLOGIC: Denies headache, numbness, or weakness. PSYCHIATRIC: Denies anxiety or depression. All other systems reviewed are negative, except as documented in HPI. [facility] Surgical History Surgical History History of vaginal hysterectomy (09/2023) Ovaries not removed Social History Social History Smoking status: Never smoker Alcohol intake: current Alcohol use details: RARE Substance use: current Substance use type: marijuana Living arrangements: with family Spiritual care concerns: No Comments At the time of my signature, I reviewed and agree with the nursing past medical, surgical, social, and family history. There is no relevant family history pertinent to the patient complaint. Exam Narrative: GENERAL: This is a well-nourished, well-developed adult, in no apparent distress. They are non ill-appearing, nontoxic appearing. Patient is obese. HEAD: normocephalic, atraumatic. EYES: Sclera clear/white. Vision is grossly intact. Conjunctiva normal bilaterally. Extraocular movements intact. EARS: External ears normal,Hearing grossly intact. NOSE: External nose normal THROAT: Mucous membranes moist NECK: Normal range of motion CARDIOVASCULAR: Regular rate and rhythm. Normal S1-S2. No clicks, gallops, rubs, murmurs. RESPIRATORY: Respiratory rate normal, respiratory effort nonlabored, no respiratory distress. Lung sounds clear to auscultation throughout. Lung sounds equal bilaterally. No adventitious lung sounds. GASTROINTESTINAL: Abdomen soft, flat, non-tender, nondistended. Bowel sounds are active. No hepato-splenomegaly, or palpable masses. No guarding or rigidity. No rebound tenderness. SKIN: warm, Dry, intact with no suspicious lesions or rash, good texture and turgor. NEURO: awake, alert, and oriented to person, place and time. There were no obvious focal neurologic abnormalities. EXTREMITIES: No joint tenderness, effusion, or edema noted. BACK: Nontender without deformity. No CVA tenderness. Course Course Emergency Course: Portions of this record may have been created with voice recognition software Level of Care: Express Care Visit Vital Signs Vital signs: Vital Signs Temperature 97.3 F L 02/27/25 19:19 Pulse Rate 79 02/27/25 19:19 Respiratory Rate 18 02/27/25 19:19 Blood Pressure 116/90 02/27/25 19:19 Pulse Oximetry 97 02/27/25 19:19 Oxygen Delivery Room Air 02/27/25 19:19 Temperature 97.3 F L 02/27/25 19:19 Pulse Rate 79 02/27/25 19:19 Respiratory Rate 18 02/27/25 19:19 Blood Pressure 116/90 02/27/25 19:19 Pulse Oximetry 97 02/27/25 19:19 Oxygen Delivery Room Air 02/27/25 19:19 MDM - Female Genitourinary MDM Narrative Medical decision making narrative: Urine dipstick shows evidence of urinary tract infection. Urine culture pending. Patient clinically has consistent symptoms with UTI. Will go ahead and treat her with Macrobid given previous culture results she was allergic to cephalosporins beta lactams. She also grew E coli and Enterococcus species on the previous culture therefore Macrobid is effective to treat both types of bacteria. Patient has no systemic symptoms, no CVA tenderness, no nausea, vomiting. Patient is well-appearing. Discussed physical exam findings. Advised supportive measures and signs/symptoms to go to the ER. Pt is appropriate for outpt treatment and f/u. Differential Diagnosis Differential diagnosis: Likely urinary tract infection, cystitis and other (Pyelonephritis) Lab Data Attestation: I reviewed the patient's lab results. Labs: Lab Results 02/27/25 Range/Units 19:20 POC Urine Color Dark POC Urine Clarity Cloudy POC Urine pH 6.0 POC Ur Specif [place] 1.030 POC Urine Protein 2+ (Negative) POC Ur Glucose (UA) Negative (Negative) POC Urine Ketones Negative (Negative) POC Urine Blood 3+ (Negative) POC Urine Nitrite Negative (Negative) POC Urine Bilirubin Negative (Negative) POC Urine Urobilinogen 0.2 POC U Leukocyte Esteras 1+ (Negative) Discharge Plan Discharge Clinical Impression: Urinary tract infection Qualifiers: Urinary tract infection type: site unspecified Hematuria presence: with hematuria Qualified Code(s): N39.0 - Urinary tract infection, site not specified Patient Disposition: Home Condition: Stable Instructions: Antibiotic Form, Urinary Tract Infection in Women (ED) Additional Instructions: Take the antibiotic as prescribed The urine will be sent of for a culture to identify what type of bacteria is causing your infection. If the culture shows that the antibiotic will not get rid of your infection, you will be notified and a new antibiotic will be called in for you. Increase water intake you will need to follow up with your PCP 3-5 days. Go to the ER for any worsening symptoms, abdominal pain, fevers, nausea, vomiting, or any other concerns Patient Language: Slovenian Prescriptions: New nitrofurantoin monohyd/m-cryst [Macrobid] 100 mg capsule 100 mg PO Q12H 5 Days Qty: 10 0RF Rx Instructions: must administer with a meal/food No Action No Home Medications Follow-up/Referrals: Santos Garcia MD [Primary Care Provider] - Time of Disposition: 19:39
== END 2025-02-27 19:44 | disposition home or self-care (01) ==
PROVIDERS: PCP Family Medicine Adolescent Medicine
DX: N39.0 Urinary tract infection, site not specified (principal)
CPT/HCPCS: 81003; 99213; G0463